=== PATIENT | female | born 1995 | race Caucasian/White ===

== ENCOUNTER 2017-02-02 11:12 | Emergency (ER) | payer OTHER ==
[~2017-02-02 11:12] MED LIST: [UNRECOGNIZED DRUG - CODE] PO
[2017-02-02 11:18] VITALS: BP 126/83; PULSE 110; RESP 24; O2SAT 99
--- NOTE | 2017-02-02 11:32 | ED.REPORT ---
HPI-Rash / Abscess Date of Service Feb 02, 2017 ED Provider: History of Present Illness: abscess on right elbow present for 8 days. no drainage. has had it wrapped. denies pain. needs tdap. primary care is [facility] in [place]. Injected into site and missed 13 days ago. Wrapped site and has not moved elbow for 11 days. Nursing Notes Stated Complaint: POSS ABSCESS Chief Complaint: Skin Rash/Abscess Nursing Notes Reviewed: Yes Allergies: Coded Allergies: No Known Allergies (Verified , 02/02/17) Scheduled Oxycodone/APAP-Expunged Drug, Do Not Renew! (Endocet 10/325-Expunged Drug, Do Not Renew!) 1 Each Tablet 1-2 EACH PO Q 4-6HRS PRN General Time Seen by MD: 11:32 Chief Complaint Abscess Hx Obtained From: Patient Onset Occurred: More than a week ago... (2 weeks) Past Medical History Past Medical History Anxiety Depression Past Surgical History Right thumb Smoking History Current Every Day Smoker (4 cig a day) Social History Smokes heroin Alcohol Use: Denies alcohol use Drug Use: Meth, Other (heroin) Occupation single, no work or school 02/02/2017 Ambulatory Status Independent Review of Systems Basic Review of Systems : No dysuria, No frequency Neurologic: NL mental status, No weakness, No numbness Psychiatric: Normal thought content Physical Exam Initial Vital Signs Vital Signs (First) Date Time Temp Pulse Resp B/P Pulse Ox O2 Delivery O2 Flow Rate FiO2 02/02/17 11:18 36.7 110 24 126/83 99 Room Air Initial VS: Reviewed, Vital signs normal Head / Eyes: Atraumatic, Normocephalic, PERRL ENT: Mucous membranes moist, Conjunctiva normal, No scleral icterus Neck: Supple, Non-tender, Full range of motion Respiratory: Breath sounds normal, Clear to auscultation, No respiratory distress Cardiovascular: Regular rate & rhythm, Heart sounds normal, Intact distal pulses Abdomen / GI: Soft, Non-tender, No guarding, No rebound, No distention Back: No CVA tenderness Lymphatic: No lymphadenopathy Extremities: Vascular intact, Neuro intact, No swelling, No tenderness Neurologic: Alert, Oriented, Nonfocal Psychiatric: Mood/affect normal, Behavior normal, Normal thought content General/Constitutional: Awake, Alert, No acute distress, Well appearing, Well developed, Well hydrated Rash / Lesion Notes: right elbow is wrapped tightly with an ash wrap. On removal there are ridges and rolls corresponding to the ash wrap. They are hard with no erthyma present . She is unable to full extend the arm. US is done with indicates a pocket of fluid. It is marked ENT: Atraumatic, Airway patent, Mucous membranes moist, Pharynx NL Respiratory / Chest: Atraumatic, Breath sounds NL, Breath sounds = bilat Cardiovascular: Heart rate NL, Regular rhythm, Heart sounds NL Interpretation & Diagnostics US Soft Tissue/Musculoskeletal PROCEDURE: US EXTREMITY SONOGRAM LIMITED ([id number]) INDICATIONS: abscess in 2 different sites with communication? TECHNIQUE: Real-time scanning was performed of the right upper arm/antecubital fossa, with image documentation. COMPARISON: None. FINDINGS: There is a 4.9 x 4.3 x 0.8 cm hypoechoic complex fluid collection in the right antecubital fossa. Color Doppler evaluation demonstrates peripheral vascularity associated with a hypoechoic complex fluid collection. IMPRESSION: Complex right antecubital fossa fluid collection may represent abscess or hematoma. Please correlate with clinical data. Dictated by: Emilie Michael MD, PhD on 02/02/2017 at 13:43 Approved by: Emilie Michael MD, PhD on 02/02/2017 at 13:44 Procedures Incision & Drainage Abscess I & D Abscess: No discharge out. normal amount of bleeding. Area of hard ridge is needled with 16 gauge, no discharge out Time: 14:00 Procedure Performed by: [facility] Consent / Setup / Site Prep: Informed consent provided, Consent from patient , Hand hygiene observed, Stand sterile technique Skin Preparation Agent: Betadine Local Anesthesia: Lidocaine 1%, 3cc, 27g needle Incised Abscess with Scalpel: #11 Pus Drained: Bloody Irrigation: 150 cc Re-Eval/Medical Decision Med Decision/Clinical Course 21 year old female presents for evualation of abscess in the right elbow. Patient states she injected there 13 days ago and missed. She noticed a small amount of erthyma and hard swelling. After a few days she wrapped it in an ash and has not removed until in the ER, a total of 11 days. The site of fluid was marked by US and opened. There was no discharge out. A hard ridge was needled and there was no discharge out. The multiple sites of hard ridges are likely from the wrap for 11 days. discussed with patient the need to start moving the arm, both passive and active. She is started on antibiotics as a precaution. Follow up scheduled for 2 days on Thursday. No sign of compartment syndrome or fracture. Discharge & Departure Impression: Primary Impression: Elbow stiffness Laterality: right Qualified Code: M25.621 - Stiffness of right elbow, not elsewhere classified Disposition: Home Additional Instructions: The US showed a pocket of fluid. On opening the site that was marked by US, there was no discharge out. Needle aspiration of one of the sites of hard swelling did not show any discharge. You have had your elbow wrapped for 11 days. Need to start moving the elbow and doing warm to the site. Please start antibiotics bactrim in the am and pm for 7 days. Please return in 2 days on Thursday for a recheck. Ask for Fang, I start at 11 am. Do passive( where you move the arm with your other hand) and active (where you move the arm yourself) range of motion almost continuously. Referrals: [facility] (PCP) EDSupervising Provider for APC: Shell Maloney MD copies to: [facility] Fang Goldman Feb 02, 2017 11:32
[2017-02-02] MEDS ORDERED: TdaP Vaccine 0.5 mL Inj IM ONE (11:45)
--- NOTE | 2017-02-02 13:47 | DRSVH ---
PROCEDURE: US EXTREMITY SONOGRAM LIMITED ([id number]) INDICATIONS: abscess in 2 different sites with communication? TECHNIQUE: Real-time scanning was performed of the right upper arm/antecubital fossa, with image doc umentation. COMPARISON: None. FINDINGS: There is a 4.9 x 4.3 x 0.8 cm hypoechoic complex fluid collection in the right antecubital fossa. Color Doppler evaluation demonstrates peripheral vascularity associated with a hypoechoic comp juventino fluid collection. IMPRESSION: Complex right antecubital fossa fluid collection may represent abscess or hematoma. Pleas e correlate with clinical data. Dictated by: Emilie Micahel MD, PhD on 02/02/2017 at 13:43 Approved by: Emilie Michael MD, PhD on 02/02/2017 at 13:44
[2017-02-02 14:09] VITALS: BP 113/72; PULSE 68; RESP 14; O2SAT 98
== END 2017-02-02 14:29 | disposition home or self-care (01) ==
LOC: SED 11:12
DX: M25.621 Stiffness of right elbow, not elsewhere classified (principal); F41.9 Anxiety disorder, unspecified; F32.9 Major depressive disorder, single episode, unspecified; F17.200 Nicotine dependence, unspecified, uncomplicated